=== PATIENT | male | born 1980 | race Caucasian/White ===

== ENCOUNTER 2022-12-27 14:31 | Outpatient (CLI) | payer BC, SELFPAY ==
--- NOTE | ~2022-12-27 | XR_ITS ---
XR abdomen/kub 1V 12/27/2022 14:46 INDICATION: Abdomen pain TECHNIQUE: KUB COMPARISON: None FINDINGS: Bowel gas pattern is normal. There is no evidence of free air, mass, organomegaly, ascites or obstruction. No abnormal calculi are seen. The bones appear intact. IMPRESSION: 1: No acute abdominal abnormality identified. Reviewed, dictated and finalized at location A.
== END 2022-12-27 14:32 ==
PROVIDERS: PCP Nurse Practitioner Family; Visit Provider Nurse Practitioner Family
DX: R10.9 Unspecified abdominal pain (principal)
CPT/HCPCS: 74018

== ENCOUNTER 2022-12-27 14:48 | Outpatient (CLI) | payer BC, SELFPAY ==
[2022-12-27 18:54] LABS: Basophils Absolute Auto 0.1 K/mm3 (0.0-0.1); Basophils Percent Auto 0.9 % (0.2-1.2); Eosinophils Absolute Auto 0.1 K/mm3 (0-0.3); Eosinophils Percent Auto 1.7 % (0-4.4); Hematocrit 46.6 % (42.0-52.0); Hemoglobin 15.8 g/dL (14.0-18.0); Immature Granulocyte Absolute 0.01 K/mm3 (0.00-0.031); Immature Granulocyte Percent A 0.1 % (0-0.5); Lymphocytes Absolute Auto 1.66 K/mm3 (0.9-3.2); Lymphocytes Percent Auto 20.4 % (18.3-44.2); Mean Corpuscular HGB Conc 33.9 g/dl (32-36); Mean Corpuscular Hemoglobin 30.7 pg (26-34); Mean Corpuscular Volume 90.5 fl (80-100); Mean Platelet Volume 8.6 fl (7.4-10.4); Monocytes Absolute Auto 0.9 K/mm3 (0.1-0.6); Monocytes Percent Auto 10.5 % (2.6-8.5); Neutrophils Absolute Auto 5.4 K/mm3 (1.3-6.7); Neutrophils Percent Auto 66.4 % (45.5-73.1); Platelet Count Result 345 k/mm3 (150-375); Red Blood Count 5.15 M/mm3 (4.6-6.20); Red Cell Distribution Width 11.9 % (11.5-14.5); White Blood Count 8.1 K/mm3 (4.5-10.0)
[2022-12-27 19:09] LABS: Alanine Aminotransferase 41 U/L (6-50); Albumin Level 4.5 g/dL (3.5-5.1); Alkaline Phosphatase 80 U/L (38-126); Amylase 72 U/L (30-110); Anion Gap 9 mmol/L (8-16); Aspartate Amino Transferase 43 U/L (17-59); Bilirubin,Total 0.5 mg/dL (0.2-1.3); Blood Urea Nitrogen 21 mg/dL (9-20); Calcium 8.8 mg/dL (8.4-10.2); Carbon Dioxide 26 mmol/L (22-30); Chloride 103 mmol/L (98-107); Estimated Glomerular Filt Rate > 60; Glucose 90 mg/dL (65-110); Lipase 78 U/L (23-300); Potassium 3.9 mmol/L (3.4-5.0); Sodium 138 mmol/L (137-145)
== END 2022-12-27 14:49 | disposition home or self-care (01) ==
PROVIDERS: PCP Nurse Practitioner Family; Visit Provider Nurse Practitioner Family
DX: Z00.00 Encounter for general adult medical examination without abnormal findings (principal); R10.9 Unspecified abdominal pain; I10 Essential (primary) hypertension
CPT/HCPCS: 36415; 80053; 82150; 83690; 85025; 87086; 87088

== ENCOUNTER 2023-02-11 05:44 | Inpatient (IN) | payer BC, SELFPAY ==
[2023-02-11] VITALS (17 sets, daily range): BP systolic 117–160; BP diastolic 68–109; PULSE 55–86; RESP 14–22; TEMP 36.1–36.9; O2SAT 97–100
--- NOTE | ~2023-02-11 | XR_ITS ---
XR chest 2V DATE: 02/11/2023 06:02 INDICATION: Mid chest pain after playing a lot of cough TECHNIQUE: PA and lateral views COMPARISON: None FINDINGS: Normal heart size. No hilar or mediastinal enlargement. No pulmonary infiltrate or consolid ation, pleural effusion or pulmonary vascular congestion or pneumothorax. Included skeletal structure s are unremarkable. IMPRESSION: No active cardiopulmonary disease Reviewed, dictated and finalized at location A.
--- NOTE | 2023-02-11 05:45 | ECG_ITS ---
Measurements Intervals [place] Rate: 54 P: -5 DC: 179 QRS: -30 QRSD: 109 T: 3 QT: 403 QTc: 383 Interpretive Statements SINUS BRADYCARDIA BORDERLINE T WAVE ABNORMALITY- INFERIOR LEADS BORDERLINE ECG NO PREVIOUS ECG AVAILABLE FOR COMPARISON Electronically Signed On 02-11-2023 7:10:21 CDT by Aubrey Cao D.O.
[2023-02-11 06:09] LABS: Basophils Absolute Auto 0.1 K/mm3 (0.0-0.1); Basophils Percent Auto 0.7 % (0.2-1.2); Eosinophils Absolute Auto 0.3 K/mm3 (0-0.3); Eosinophils Percent Auto 2.3 % (0-4.4); Hematocrit 48.1 % (42.0-52.0); Hemoglobin 16.6 g/dL (14.0-18.0); Immature Granulocyte Absolute 0.04 K/mm3 (0.00-0.031); Immature Granulocyte Percent A 0.4 % (0-0.5); Lymphocytes Absolute Auto 1.41 K/mm3 (0.9-3.2); Lymphocytes Percent Auto 13.1 % (18.3-44.2); Mean Corpuscular HGB Conc 34.5 g/dl (32-36); Mean Corpuscular Hemoglobin 30.3 pg (26-34); Mean Corpuscular Volume 87.9 fl (80-100); Mean Platelet Volume 8.4 fl (7.4-10.4); Monocytes Absolute Auto 1.6 K/mm3 (0.1-0.6); Monocytes Percent Auto 14.8 % (2.6-8.5); Neutrophils Absolute Auto 7.4 K/mm3 (1.3-6.7); Neutrophils Percent Auto 68.7 % (45.5-73.1); Platelet Count Result 269 k/mm3 (150-375); Red Blood Count 5.47 M/mm3 (4.6-6.20); Red Cell Distribution Width 11.5 % (11.5-14.5); White Blood Count 10.8 K/mm3 (4.5-10.0)
[2023-02-11] MEDS: ASPIRIN 81 MG CHEWABLE TABLET 324 MG PO (06:11)
[2023-02-11 06:21] LABS: Alanine Aminotransferase 38 U/L (6-50); Albumin Level 4.7 g/dL (3.5-5.1); Alkaline Phosphatase 114 U/L (38-126); Anion Gap 9 mmol/L (8-16); Aspartate Amino Transferase 38 U/L (17-59); Bilirubin,Total 0.7 mg/dL (0.2-1.3); Blood Urea Nitrogen 17 mg/dL (9-20); Carbon Dioxide 23 mmol/L (22-30); Chloride 105 mmol/L (98-107); Estimated CRCL calculation 141 ml/min; Estimated Glomerular Filt Rate > 60; Glucose 128 mg/dL (65-110); Lipase 91 U/L (23-300); Potassium 4.1 mmol/L (3.4-5.0); Sodium 137 mmol/L (137-145)
[2023-02-11 06:24] LABS: Prothrombin Time 13.4 Seconds (11.1-14.7)
[2023-02-11 06:25] LABS: Partial Thromboplastin Time 31.2 SECONDS (22.3-36.8)
--- NOTE | 2023-02-11 06:31 | ED.CHESTPAIN ---
HPI - Chest Pain General Chief Complaint: Chest Pain Stated Complaint: chest pain Time Seen by Provider: 02/11/23 06:19 History of Present Illness HPI narrative: Patient presents to the emergency department with persistent mid sternal chest pain that has been ongoing all night. He played golf yesterday. Pain woke him up and he has not been able to go back to sleep. 2 doses of Tylenol prior to arrival has not helped. He denies that pain is worse with deep breath and breathing however RN reports that his chest wall is very tender. Patient still has his gallbladder but right upper quadrant is not tender. He denies all other positive review of systems including fevers chills and shortness of breath. Denies significant family history of CAD patient is very pleasant in no distress but appears uncomfortable Related Data Allergies Allergy/AdvReac Type Severity Reaction Status Date / Time No Known Allergies Allergy Verified 02/11/23 05:44 Review of Systems Review of Systems: Review of systems negative except for what is documented in the HPI [facility] Past Medical History Medical History (Updated 02/11/23 @ 07:02 by Grace Finney MD) ADHD GERD without esophagitis Hair loss Hx of fracture of lower leg (~1995) tib-fib fracture, ORIF nicole in place Left sided abdominal pain of unknown cause Surgical History Surgical History Hx of foot surgery (~1992) right plantar foot -foreign body removed Liver donor (~2000) Family History Family History Mother Hepatitis C liver transplant recipient Father Alcoholism Social History Social History 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. Smoking status: Never smoker (use chewing tobacco daily ) Smokeless tobacco user: chewing tobacco Alcohol intake: current Drinks per week: 10 Substance use: never Lack of Transportation: No Lack of Food: Never True Current Housing: I Have Housing Concerned About Future Housing: No Difficulty Paying Gas/Electric Bills: No Difficulty Paying for Meds: No Currently Unemployed: No Difficulty w/ Childcare or Family Care: No Living arrangements: with family Exam Narrative: GENERAL: Well-appearing, well-nourished, and in no acute distress. HEAD: Normocephalic, atraumatic. EYES: PERRLA and EOMI. ENT: Nares clear, no rhinorrhea or epistaxis. Mucous membranes moist. NECK: Supple. CHEST: Clear to auscultation. No respiratory distress. HEART: Regular rate and rhythm. ABDOMEN: Soft, nontender, nondistended. EXTREMITIES: Normal range of motion. No edema. SKIN: Warm, dry, no rash. NEURO: No focal deficits. Alert and oriented x3. PSYCH: Normal mood and affect. Course Course Emergency Course: Differential diagnosis includes but not limited to chest wall musculoskeletal pain, acute cholecystitis, CAD, esophageal spasm Telemetry ordered due to patient having chest pain to monitor for dysrhythmias. Evaluated by me sinus bradycardia rate 58, no signs of ischemia Consulted Dr. Naylor. Plan to order heparin drip and get pain resolved. We will keep him n.p.o. Vital Signs Vital signs: Vital Signs Temperature 36.1 C L 02/11/23 05:51 Pulse Rate 55 L 02/11/23 05:51 Respiratory Rate 16 02/11/23 05:51 Blood Pressure 156/96 H 02/11/23 05:51 Pulse Oximetry 100 02/11/23 05:51 Oxygen Delivery Room Air 02/11/23 05:51 Temperature 36.1 C L 02/11/23 05:51 Pulse Rate 72 02/11/23 07:00 Respiratory Rate 17 02/11/23 07:00 Blood Pressure 134/101 H 02/11/23 07:00 Pulse Oximetry 98 02/11/23 07:00 Oxygen Delivery Room Air 02/11/23 06:04 MDM - Chest Pain MDM Narrative Medical decision making narrative: If patient troponin is negative his heart score will be low at 2 And to sign out
[2023-02-11 06:37] LABS: Troponin I 0.473 ng/mL (0.000-0.034)
--- NOTE | 2023-02-11 06:48 | ECG_ITS ---
Measurements Intervals [place] Rate: 54 P: -11 MO: 201 QRS: -28 QRSD: 117 T: -1 QT: 405 QTc: 387 Interpretive Statements SINUS BRADYCARDIA INCOMPLETE RIGHT BUNDLE BRANCH BLOCK BORDERLINE T WAVE ABNORMALITY- INFERIOR LEADS BORDERLINE ECG COMPARED TO ECG 02/11/2023 05:48:28 NO SIGNIFICANT CHANGES Electronically Signed On 02-11-2023 7:11:01 CDT by Aubrey Cao D.O.
[2023-02-11] MEDS: NITROGLYCERIN SL 0.4 MG TABLET SUBLINGUAL (06:52)
[2023-02-11] MEDS: ACETAMINOPHEN 325 MG TABLET 650 MG PO (06:52)
[2023-02-11] MEDS: HYDROmorphone HCL INJ (*CRX) 1 MG/ML SYR 0.5 MG IV PUSH (07:02)
[2023-02-11] MEDS: HEPARIN SODIUM 5,000 UNITS/ML VIAL 4000 UNITS IV PUSH ×3 (07:03→20:49)
--- NOTE | 2023-02-11 07:09 | PC.NURSE ---
This RN gave pt second nitro 5 minutes after first dose. Pt experienced relief.
[2023-02-11] MEDS: HEPARIN SOD/D5W 100 UNITS/ML 25,000 UNITS/250 ML BAG 10 UNITS IV CONT (07:14)
--- NOTE | 2023-02-11 08:21 | ADMGEN ---
This patient, Hardy Lopez, was admitted to IMU Room 200-01 at 0820. Patient/family oriented to hospital policies and general routines including ID bracelet, bed and alarms, visiting hours, pain management, procedures, bathroom and other care routines, personal items, smoking policy, room service/diet, and visiting hours. Information on how to activate the Rapid Response Team has been discussed. Patient/Family are encouraged to report perceived risks to care and to ask questions if they do not understand what they are told or what they should do.
[2023-02-11 09:24] LABS: Troponin I 0.699 ng/mL (0.000-0.034)
--- NOTE | 2023-02-11 10:38 | PM.IMHP ---
H&P: HPI History of Present Illness Date/Time: Date of service 02/11/23 10:38 Chief Complaint: Chest pain Narrative: This is 42-year-old patient with no significant past medical history apart from transient depression a year ago who apparently had a golf tournament yesterday and then went had some food with friends and then went to bed at 10:30 p.m. he woke up at 1:00 a.m. complaining of central chest heaviness with no aggravating or relieving factors and no radiation. He took Tylenol with no help. Then at 4:30 a.m. he took another Tylenol with no help. He decided to come to the emergency room. Denied shortness of breath, lower extremity edema, dizziness, syncope, orthopnea paroxysmal nocturnal dyspnea. Occasional vaping. He averages 6 beers a day. Does not know his father's side. His mom is adopted. His brother has no medical issues. 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 He was started on aspirin, heparin. Currently pain-free. No events on telemetry. EKG reviewed and as was self shows normal sinus rhythm with no ischemia. Chest x-ray looked unremarkable. Electrolytes and CBC unremarkable except for mild leukocytosis. Review of Systems Constitutional: Constitutional: Denies chills, Denies fever(s) and Denies poor appetite Eyes: Eyes: Denies eye discharge, Denies loss of vision and Denies eye pain ENT: Denies dizziness, Denies epistaxis, Denies nasal congestion and Denies sore throat Cardiovascular: Cardiovascular: Reports chest pain, Denies syncope, Denies pedal edema, Denies leg edema, Denies palpitations, Denies dyspnea, Denies dyspnea on exertion and Denies orthopnea Respiratory: Respiratory: Denies cough, Denies dyspnea, Denies dyspnea on exertion and Denies wheezing Gastrointestinal: Gastrointestinal: Denies abdominal pain, Denies diarrhea, Denies nausea and Denies vomiting Genitourinary: Genitourinary: Denies hematuria, Denies genital lesions and Denies dysuria Musculoskeletal: Musculoskeletal: Denies arthralgias, Denies joint swelling and Denies numbness Integumentary/Breasts: Skin/Breast: Denies pruritus and Denies rash Neurologic: Denies dizziness, Denies syncope, Denies loss of vision and Denies numbness Psychiatric: Psychiatric: Denies anxiety and Denies depression Endocrine: Endocrine: Denies cold intolerance, Denies heat intolerance and Denies palpitations Hematologic/Lymphatic: Hematologic/Lymphatic: Denies easy bleeding and Denies easy bruising Allergic/Immunologic: Allergic/Immunologic: Denies urticaria and Denies wheezing PMFSH Past Medical History Medical History ADHD GERD without esophagitis Hair loss Hx of fracture of lower leg (~1995) tib-fib fracture, ORIF nicole in place Left sided abdominal pain of unknown cause Surgical History Surgical History Hx of foot surgery (~1992) right plantar foot -foreign body removed Liver donor (~2000) Family History Family History Mother Hepatitis C liver transplant recipient Father Alcoholism Social History Social History 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 Smoking status: Never smoker Smokeless tobacco user: chewing tobacco Alcohol intake: current Drinks per week: 40 Substance use: current Substance use type: marijuana Last use: 02/09/23 Lack of Transportation: No Lack of Food: Never True Current Housing: I Have Housing Concerned About Future Housing: No Difficulty Paying Gas/Electric Bills: No Difficulty Paying for Meds: No Currently Unemployed: No Education: Associate Degree Difficulty w/ Childcare or Family Care: No Living arrangements: with family Spiritual care concerns: No Meds Home Medications and Allergies Home Medications Medicat
[2023-02-11 12:36] LABS: Troponin I 0.779 ng/mL (0.000-0.034)
[2023-02-11 14:16] LABS: Partial Thromboplastin Time 32.9 SECONDS (22.3-36.8)
[2023-02-11 20:19] LABS: Partial Thromboplastin Time 44.5 SECONDS (22.3-36.8)
[2023-02-12] VITALS (18 sets, daily range): BP systolic 101–130; BP diastolic 53–81; PULSE 54–78; RESP 10–20; TEMP 36.3–37.1; O2SAT 95–100
--- NOTE | 2023-02-12 | ECHO_ITS ---
Patient Info Name: Hardy Lopez Age: 42 years : 1980 Gender: Male Ht: 74 in Wt: 264 lbs BSA: 2.54 m2 HR: 78 bpm BP: 130 / 64 mmHg Heart Rhythm: Sinus Rhythm Technical Quality: Fair Exam Date: 02/12/2023 8:13 AM Exam Location: [facility] Card Pulmonary Patient Status: Inpatient Admit Date: 02/11/2023 Staff Ordering Physician: Brandy Wells MD Players Assistant: Ashely Casillas RDCS Attending Provider: Mayi Naylor DO Referring Physician: Russell ELIAS; Exam Type: CA echo doppler color flow Study Info Indications - NSTEMI R07.9 - Chest pain, unspecified Complete two-dimensional, color flow and Doppler transthoracic echocardiogram is performed. Summary 1. Complete two-dimensional, color flow and Doppler transthoracic echocardiogram is performed. 2. Unremarkable 2D Doppler echocardiogram. Left Ventricle Left ventricular chamber dimension is normal. Left ventricular systolic function is normal, estimated at 55-60%. The left ventricular diastolic function is normal. Right Ventricle Right ventricular chamber dimension is normal. Left Atria Left atrial chamber dimension is normal. Right Atria Right atrial chamber dimension is normal. Aortic Valve The aortic valve is normal. Pulmonic Valve The pulmonic valve is normal. Mitral Valve The mitral valve has normal leaflets. Tricuspid Valve The tricuspid valve leaflets are normal. Pericardium/Pleural The pericardium appears normal. Aorta The aortic root size at the sinus of Valsalva is normal. Left Ventricular Outflow Tract Name Value Normal LVOT 2D LVOT Diameter 2.3 cm LVOT Doppler LVOT Peak Gradient 4 mmHg LVOT Mean Gradient 2 mmHg LVOT VTI 19 cm LVOT VTI/AV VTI Ratio 0.8 LVOT Stroke Volume 78 ml LVOT CO 5.0 l/min LVOT CI 2.0 l/min/m2 Pulmonic Valve Name Value Normal RVOT Doppler RVOT Peak Gradient 3 mmHg PV Doppler PV Peak Gradient 4 mmHg Mitral Valve Name Value Normal MV Doppler MV Decel [place] 412 cm/s2 MV PHT 46 ms MV Area (PHT) 4.8 cm2 4.0-5.0 MV Diastolic Function MV E Peak Velocity 65 cm/s MV A Peak Velocity 45 cm/s MV E/A
[2023-02-12] MEDS: HEPARIN SOD/D5W 100 UNITS/ML 25,000 UNITS/250 ML BAG 18 UNITS IV CONT (01:19)
[2023-02-12 04:01] LABS: Partial Thromboplastin Time 63.8 SECONDS (22.3-36.8)
[2023-02-12] MEDS: HEPARIN SODIUM 5,000 UNITS/ML VIAL 4000 UNITS IV PUSH (04:15)
--- NOTE | 2023-02-12 08:39 | PC.NURSE ---
labor employment associate team at bedside at 0830 to prepare patient for Cardiac cath. Cardiac cath team transported patient to laborer cook house at 0838. labor employment associate team to resume patient care at this time.
--- NOTE | 2023-02-12 08:57 | WPDMODSED ---
Moderate Sedation Note-Pt Data Patient Data Diagnosis: chest pain with troponin elevation Present Complaint: no complaints this morning Procedure to be performed/Plan: left heart catheterization Allergies Allergy/AdvReac Type Severity Reaction Status Date / Time No Known Allergies Allergy Verified 02/11/23 08:23 Home Medications Medication Instructions Recorded Confirmed Type bupropion HCl 300 mg 24 hr tablet, 300 mg PO DAILY 02/11/23 02/11/23 History extended release Current Medications: Active Medications Heparin Sodium (Porcine) (Heparin Sodium 5,000 Units/Ml Vial) 4,000 units IV PUSH PRN PRN PRN Reason: aPTT 55 - 70 seconds Last Admin: 02/12/23 04:15 Dose: 4,000 units Heparin Sodium (Porcine) (Heparin Sodium 5,000 Units/Ml Vial) 4,000 units IV PUSH PRN PRN PRN Reason: aPTT less than 55 seconds Last Admin: 02/11/23 20:49 Dose: 4,000 units Heparin Sodium/Dextrose (Heparin Sodium/D5w 100 Units/Ml) 25,000 units in 250 mls @ 20 mls/hr IV CONT .[id number] [facility]; Protocol Last Titration: 02/12/23 04:18 Dose: 2,000 units/hr, 20 mls/hr Nitroglycerin (Nitroglycerin Sl 0.4 Mg Tablet) 0.4 mg SUBLINGUAL Q5MIN PRN PRN Reason: Chest Pain Perflutren Lipid Microsphere (Perflutren Lipid Microspheres 1.5 Ml Vial Diluted To 10 Ml Total Volume) 0 ml IV PUSH ONCE PRN; Protocol PRN Reason: adequate visualization Stop: 02/14/23 10:57 Sedation/Anesthesia: No previous sedation/anesthesia problems (including family history). 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 Smoking status: Never smoker Smokeless tobacco user: chewing tobacco Alcohol intake: current Drinks per week: 40 Substance use: current Substance use type: marijuana Last use: 02/09/23 Lack of Transportation: No Lack of Food: Never True Current Housing: I Have Housing Concerned About Future Housing: No Difficulty Paying Gas/Electric Bills: No Difficulty Paying for Meds: No Currently Unemployed: No Education: Associate Degree Difficulty w/ Childcare or Family Care: No Living arrangements: with family Spiritual care concerns: No Mod Sed Physical Exam Physical Exam Pre Procedural Exam: Normal: Appearance, Neck, Throat, Airway, Lungs, Heart Size, Heart Rate, Heart Rhythm, Neuro Exam and Extremities Hours since solid foods: 12 Hours since liquid intake: 12 Mallampati Classification: class II Internal Medicine - PN: Obj Da Vital Signs Vital Signs: Vital Signs - 24 hr 02/11/23 10:00 02/11/23 11:29 02/11/23 12:00 Temperature 36.9 C Pulse Rate 58 L 60 Respiratory Rate 19 Blood Pressure 126/77 Pulse Oximetry 99 Oxygen Delivery Room Air 02/11/23 12:00 02/11/23 14:00 02/11/23 16:00 Temperature Pulse Rate 86 60 72 Respiratory Rate Blood Pressure Pulse Oximetry Oxygen Delivery 02/11/23 16:00 02/11/23 16:00 02/11/23 17:56 Temperature 36.9 C Pulse Rate 74 84 Respiratory Rate 18 Blood Pressure 117/72 Pulse Oximetry 98 Oxygen Delivery Room Air 02/11/23 20:00 02/11/23 20:00 02/11/23 22:00 Temperature 36.7 C Pulse Rate 72 74 81 Respiratory Rate 18 Blood Pressure 123/68 Pulse Oximetry 97 Oxygen Delivery 02/11/23 23:40 02/12/23 0
--- NOTE | 2023-02-12 09:22 | WPDCARDPROC ---
Cardiac Cath Procedure Note Date of procedure:: 02/12/23 Performing physician:: Daljit Mcfarlane MD Indication:: chest pain troponin elevation Brief clinical history:: this is a 42-year-old patient who entered the hospital for evaluation of an episode of chest pain followed by a rise in his troponin level. He has no history of heart disease and no exertional symptomatology Procedure Procedure performed:: left ventriculogram coronary angiogram Angio-Seal to right femoral artery Sedation/Medication given:: fentanyl 50 mg Versed to mid case start time 9:01 a.m. case end time 9:17 a.m. sedation provided by Staci Harris RN, trained observer Access site:: right femoral artery Estimated blood loss:: 25 cc Procedure note:: patient was brought to the cardiac catheterization lab in the postabsorptive state where the right femoral triangle was prepared and draped in the normal fashion. Anesthesia was provided with 1% lidocaine infiltrated locally. Using the modified Seldinger technique the femoral artery was punctured and a 5 Guamanian vascular sheath was placed. After this I used a 5 [place]ian angled pigtail catheter to document left-sided hemodynamics and pullback pressures across the aortic valve. And left ventriculogram was performed in the 30 degree BAKER projection. Following this I engaged the left coronary artery in multiple projections and performed angiogram using a 5 [place] FL4 catheter. Right coronary artery was engaged and injected using a standard 5 [place] JR4 catheter. Following this the cineangiograms were reviewed. An angiogram was performed to the femoral artery through the sheath and then and 6 [place] Angio-Seal device was used to provide cutaneous hemostasis. 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 Findings:: Hemodynamics: Central aortic pressure is 115 76 left ventricle 115/0 end-diastolic pressure 14 there is no gradient upon pullback across the aortic valve. Left ventricle: The LV is normal in size all segments contract adequately the global ejection fraction visually estimates to be 50%. There were no regional wall motion abnormalities. The left main coronary artery is medium in caliber and widely patent the left anterior descending is a medium caliber vessel extending down to around the apex. The LAD is branches are smooth and angiographically normal in appearance the circumflex is a medium caliber vessel giving rise to the marginal branches. The circumflex marginal branches are angiographically smooth and normal in appearance the right coronary artery is dominant to the posterior circulation. The RPL branches are relatively small. The entire right coronary system however appears to be smooth and angiographically free of disease. Conclusion:: 1. Right coronary artery dominant circulation with no angiographic abnormalities 2. normal left ventricular systolic contractility Daljit Mcfarlane MD [facility]
--- NOTE | 2023-02-12 09:33 | SUR.PHASEII ---
Arrives in [facility] post cardiac cath. VS stable. No chest pain or SOB. Rt groin drsg d/i and site without hematoma, bruising or pain. Rt pedal pulse strong and regular. HOB raised approx 20 degrees.
--- NOTE | 2023-02-12 11:02 | PC.NURSE ---
Patient arrived back to IMU room 200 at 1050 from shrimp pond laborer. RN to resume patient care.
[2023-02-12] MEDS: SODIUM CHLORIDE 0.9% IV 1,000 ML 125 ML IV CONT (11:22)
[2023-02-12 11:28] LABS: Partial Thromboplastin Time 31.2 SECONDS (22.3-36.8)
--- NOTE | 2023-02-12 16:08 | PM.DS ---
DS: Admitting Diagnosis Discharge Date 02/12/2023 Admitting Diagnosis chest pain DS: Discharge Diagnosis Discharge Diagnosis (1) Acute non-ST elevation myocardial infarction (NSTEMI): Code(s): I21.4 - Non-ST elevation (NSTEMI) myocardial infarction Status: Acute Assessment and Plan: 42-year-old patient who entered the hospital for evaluation of an episode of chest pain followed by a rise in his troponin level.? He has no history of heart disease and no exertional symptomatology. No coronary artery disease seen on coronary angiogram. Continue ASA Continue risk factor modification for CAD Follow up with Dr. Cao as outpatient OK for discharge today. DS: Summary Hospital Course Hospital Course: Presented to the hospital with chest pain and had a modest troponin rise. He was taken to the cardiac rags laborer and was not found to have any coronary artery disease. Discharged home in stable condition with plan to follow up with Dr. Cao as outpatient. Time Spent with Patient Time attestation: Total time spent providing and/or coordinating discharge services: Exam Const: General: cooperative, comfortable, no acute distress, alert, awake and well nourished Nutritional Appearance: well nourished Orientation/consciousness: patient oriented x3 HENMT: Head: normal to inspection, normocephalic and atraumatic Ears: hearing grossly normal bilaterally Face/Nose/Sinus: Normal external nose present, Normal nares present, no nasal discharge noted, normal facial exam and No erythema Face and sinus: normal facial exam and no erythema Mouth: No drooling and No restricted motion Throat: uvula midline Eyes: General: appearance normal, both eyes and all related structures Alignment and Position: position normal Conjunctivae: conjunctivae normal Sclera: sclerae normal Direct Ophthalmoscopy: No photophobia Neck: Neck: normal visual inspection and no JVD Thyroid: thyroid normal Carotids: no bruits Lymphatic: lymphedema not noted Chest: Chest palpation & inspection: normal inspection of the chest and no tenderness Resp: Effort & Inspection: normal respiratory effort and no nasal flaring Auscultation: clear to auscultation bilaterally, no crackles, no rales and no wheezes Cardio: Jugular venous distension: no JVD Rate: regular rate Rhythm: regular rhythm Heart sounds: S1 normal heart sound present, S2 normal heart sound present, no gallops, no murmurs and no rubs GI: Inspection: non-distended Auscultation: normal bowel sounds Rectal Exam: deferred : General: No no CVA tenderness Back/Spine/Pelvis: Back: No no CVA tenderness Cervical Spine: cervical ROM normal Skin: General skin exam: normal color and rashes and/or lesions noted Neuro: General: patient oriented x3 Cranial nerves: No CN's II-XII intact bilaterally Speech: normal speech Motor exam (neuro): no tremors Extrem: General: normal to inspection and pedal edema present Psych: Appearance: grossly normal and well kempt Speech and movement: Normal speech and movement present Affect: normal affect DS: Data Data Completed and Pending Labs on day of discharge: Labs from last 24 hours 02/12/23 02/12/23 02/11/23 11:01 03:06 19:59 APTT 31.2 63.8 H 44.5 H Discharge Plan Discharge Consulting providers: Brandy Wells; Daljit Mcfarlane; Aubrey Cao; Bruce Gaona Discharging Clinician: Jaymie Alfonso Patient Disposition: Home, Self-Care Activity: other - see discharge instructions Diet: regular Wound Care Instructions: other - see discharge instructions Discharge Instructions: [facility] [address]
== END 2023-02-12 17:05 | disposition home or self-care (01) | DRG 282 ==
LOC: ANHED 07:02 → ANH2MED 08:20 → ANHIMU 08:20
PROVIDERS: Internal Medicine Cardiovascular Disease; Specialist; Admitting Provider Internal Medicine Cardiovascular Disease; Emergency Provider Emergency Medicine; PCP Nurse Practitioner Family; Visit Provider Nurse Practitioner
PROC: 4A023N7 Measurement of Cardiac Sampling and Pressure, Left Heart, Percutaneous Approach (ICD-10-PCS; CPT 93452; principal; 2023-02-12 09:00)
PROC: 4A023N7 Measurement of Cardiac Sampling and Pressure, Left Heart, Percutaneous Approach (ICD-10-PCS; 2023-02-12 09:00)
DX: I21.4 Non-ST elevation (NSTEMI) myocardial infarction (principal); K21.9 Gastro-esophageal reflux disease without esophagitis; F17.290 Nicotine dependence, other tobacco product, uncomplicated
CPT/HCPCS: 36415; 71046; 80053; 83690; 84484; 85025; 85610; 85730; 93005; 93306; 93458; 96374; 96375; 99285; A9270; C1760; C1887; C1894; G0269; J1170; J1644; J2250; J3010; J7030; J7040

== ENCOUNTER 2023-02-16 11:12 | Outpatient (CLI) | payer BC, SELFPAY ==
[2023-02-16 19:09] LABS: Basophils Absolute Auto 0.1 K/mm3 (0.0-0.1); Eosinophils Absolute Auto 0.2 K/mm3 (0-0.3); Eosinophils Percent Auto 2.8 % (0-4.4); Hemoglobin 16.7 g/dL (14.0-18.0); Immature Granulocyte Absolute 0.03 K/mm3 (0.00-0.031); Immature Granulocyte Percent A 0.4 % (0-0.5); Lymphocytes Absolute Auto 1.85 K/mm3 (0.9-3.2); Lymphocytes Percent Auto 25.9 % (18.3-44.2); Mean Corpuscular HGB Conc 33.4 g/dl (32-36); Mean Corpuscular Hemoglobin 30.5 pg (26-34); Mean Corpuscular Volume 91.4 fl (80-100); Mean Platelet Volume 8.8 fl (7.4-10.4); Monocytes Absolute Auto 0.7 K/mm3 (0.1-0.6); Monocytes Percent Auto 9.2 % (2.6-8.5); Neutrophils Absolute Auto 4.3 K/mm3 (1.3-6.7); Neutrophils Percent Auto 60.7 % (45.5-73.1); Platelet Count Result 355 k/mm3 (150-375); Red Blood Count 5.47 M/mm3 (4.6-6.20); Red Cell Distribution Width 11.7 % (11.5-14.5); White Blood Count 7.2 K/mm3 (4.5-10.0)
[2023-02-16 19:34] LABS: Alanine Aminotransferase 63 U/L (6-50); Albumin Level 4.7 g/dL (3.5-5.1); Alkaline Phosphatase 81 U/L (38-126); Anion Gap 7 mmol/L (8-16); Aspartate Amino Transferase 46 U/L (17-59); Bilirubin,Total 0.7 mg/dL (0.2-1.3); Blood Urea Nitrogen 21 mg/dL (9-20); Calcium 9.1 mg/dL (8.4-10.2); Carbon Dioxide 30 mmol/L (22-30); Chloride 101 mmol/L (98-107); Cholesterol 164 mg/dL (0-200); Estimated Glomerular Filt Rate > 60; Glucose 97 mg/dL (65-110); HDL Direct 36 mg/dL; Potassium 4.3 mmol/L (3.4-5.0); Sodium 138 mmol/L (137-145); Triglycerides 121 mg/dL (<150)
[2023-02-16 19:45] LABS: LDL Cholesterol Direct 90 mg/dL
[2023-02-16 19:58] LABS: Vitamin D 25 Hydroxy 61.9 ng/mL
[2023-02-16 20:05] LABS: Hemoglobin A1C 5.2 % (<5.7)
== END 2023-02-16 11:13 | disposition home or self-care (01) ==
LOC: ANHGOSHLAB 11:13
PROVIDERS: PCP Nurse Practitioner Family; Visit Provider Nurse Practitioner Family
DX: Z00.00 Encounter for general adult medical examination without abnormal findings (principal); Z13.21 Encounter for screening for nutritional disorder; I10 Essential (primary) hypertension; Z13.220 Encounter for screening for lipoid disorders; Z13.29 Encounter for screening for other suspected endocrine disorder; Z13.1 Encounter for screening for diabetes mellitus
CPT/HCPCS: 36415; 80053; 80061; 82306; 83036; 84443; 85025

== ENCOUNTER 2023-06-01 03:59 | Day surgery (SDC) | payer BC, SELFPAY ==
[2023-05-23 12:45] VITALS: BMI 34.9
--- NOTE | 2023-05-23 12:51 | PC.NURSE ---
Report to the Outpatient Waiting Room, entrance under the green pavilion located off [facility], at time 1130 on date 06/01/23. Planned Procedure Time: 1330. Time changes happen often and if your time is changed the preop area will call you the afternoon before. - You and your visitor will be asked to self-screen and do not enter if you have any COVID symptoms. - A mask is optional within the hospital at this time. Patients may have clear liquids (water, carbonated beverages, clear teas, apple juice) until 3 hours prior to surgery with a maximum of 20 ounces. - No food from midnight until time of surgery Take the following medications with a SIP of water the morning of surgery: CITALOPRAM, CLONAZEPAM IF NEEDED DO NOT STOP ANY OF YOUR OTHER PRESCRIPTION MEDICATIONS PRIOR TO SURGERY ?EXCEPT THE FOLLOWING Medications to discontinue per physician: ASPIRIN Date to take last dose: FOLLOW INSTRUCTIONS FROM DR. MARKS Please no make-up, nail syriac, hairspray, perfume, deodorant, or body powder the day of surgery. No jewelry (including any body piercings) or valuables the day of surgery, leave them at home. Please take a shower or bath the night before, or the morning of, surgery with an antibacterial soap. Wear comfortable, loose fitting clothing. - Jewelry must be removed prior to entering the operating room. Rings and piercings that are not removed may be cut off. - The hospital will not accept responsibility for valuables. - Please leave all valuables, including medications, at home the day of surgery. If you are going home after surgery, a licensed dedicated truck driver must drive you home. - NO public transportation without another adult if you receive anesthesia. - We recommend that an adult stay with you for 24 hours following discharge. - We also recommend that you do not drive, make important decision, drink alcoholic beverages, or take any drugs that were not prescribed by your health care provider for at least 24 hours after your discharge time. Follow any additional instructions given to you from your surgeon. If you or anyone in your household have experienced Covid symptoms in the past week, please notify your surgeon or the nurse liaison at the phone number below for possible testing. Telephone instructions given to PT - ABHAY UMANZOR and asked if any additional questions and then verbalized understanding. Patient advised to call surgeon office or pre surgery nurse liaison [phone] if any additional questions.
--- NOTE | 2023-05-31 17:46 | PM.IMHP ---
H&P: HPI History of Present Illness Date/Time: 05/31/23 17:46 Chief Complaint: nasal obstruction nasal congestion septal deviation turbinate hypertrophy Narrative: planned procedure Review of Systems Review of Systems: All systems reviewed & are unremarkable except as noted in HPI and below [facility] Past Medical History Medical History ADHD GERD without esophagitis Hair loss Hx of fracture of lower leg (~1995) tib-fib fracture, ORIF nicole in place Hypertrophy of nasal turbinates Insomnia Left sided abdominal pain of unknown cause Panic attacks Surgical History Surgical History Hx of foot surgery (~1992) right plantar foot -foreign body removed Liver donor (~2000) Family History Family History Mother Hepatitis C liver transplant recipient Father Alcoholism Social History Social History 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- coffee Smoking status: Never smoker Smokeless tobacco user: chewing tobacco Alcohol intake: current Drinks per week: 14 Alcohol use details: NO HARD ALCOHOL SINCE HEART ATTACK, NOW WINE/BEER Substance use: current Substance use type: marijuana Last use: 02/09/23 Lack of Transportation: No Lack of Food: Never True Current Housing: I Have Housing Concerned About Future Housing: No Difficulty Paying Gas/Electric Bills: No Difficulty Paying for Meds: No Currently Unemployed: No Education: High School Diploma/GED Difficulty w/ Childcare or Family Care: No Living arrangements: with family Spiritual care concerns: No Meds Home Medications and Allergies Home Medications Medication Instructions Recorded Confirmed Type aspirin 81 mg tablet,delayed 81 mg PO DAILY 02/20/23 05/23/23 History release (Adult Low Dose Aspirin) citalopram 20 mg tablet 20 mg PO DAILY 02/20/23 05/23/23 History nitroglycerin 0.4 mg sublingual 0.4 mg sublingual Q5M PRN chest 02/20/23 05/23/23 Rx tablet pain #30 tabs mupirocin 2 % topical ointment 1 applic topical BID #22 grams 03/28/23 05/23/23 Rx trazodone 50 mg tablet 50 mg PO QHS PRN insomnia #30 tabs 04/16/23 05/23/23 Rx clonazepam 0.5 mg tablet 0.25 mg PO QHS #30 tabs 05/14/23 05/23/23 Rx Allergies Allergy/AdvReac Type Severity Reaction Status Date / Time No Known Allergies Allergy Verified 05/23/23 12:43 Exam Narrative: septal deviation turbinate hypertrophy Assessment and Plan Assessment and plan (1) Nasal obstruction: Code(s): J34.89 - Other specified disorders of nose and nasal sinuses Status: Acute Assessment and Plan: plan or endoscopic assisted septoplasty turbinate reduction bilaterally with outfracture inferior. Risks were discussed including bleeding infection damage steroids structures septal perforation failure to resolve symptoms change in cosmesis induction of nasal valve collapse need further procedures including valve work. Failure to resolve symptoms. CSF leak brain brain damage change in vision total blindness. Need for time off work time off school. Inherent risk of narcotic use. Damage to any structure of the clavicle by myself. Damage to any structure during the induction and maintenance of anesthesia including vocal cord paralysis. Tooth numbness. (2) Hypertrophy of both inferior nasal turbinates: Code(s): J34.3 - Hypertrophy of nasal turbinates Status: Acute (3) Nasal septal deviation: Code(s): J34.2 - Deviated nasal septum Status: Acute (4) Hypertrophy of nasal turbinates: Code(s): J34.3 - Hypertrophy of nasal turbinates Status: Acute
--- NOTE | 2023-06-01 11:04 | WPDHPUPDATE1 ---
History and Physical Update Update Date/Time: 06/01/23 11:04 History and Physical has been reviewed, including an updated exam of the patient. There are NO changes in the patient's condition. Risks, benefits, and alternatives have been discussed and questions answered. Patient agrees to proceed with procedure.
--- NOTE | 2023-06-01 12:44 | WPDANESEPPF ---
Anes - Initial Pre Proc Eval Procedure: Operation Date: 06/01/23 13:30 Proposed Procedures p Septoplasty, - iTmi Doty MD s Bilateral Inferior Turbinate Reduction with Outfracture - Timi Doty MD Date/Time: 06/01/23 12:44 Surgeon: Timi Doty MD Pre Op Diagnosis: septal deviation, turbinate hypertrophy Patient Data Age: 42 Gender: M Height: 1.91 m Weight: 127 kg Allergies Allergy/AdvReac Type Severity Reaction Status Date / Time No Known Allergies Allergy Verified 05/23/23 12:43 Home Medications Medication Instructions Recorded Confirmed Type aspirin 81 mg tablet,delayed 81 mg PO DAILY 02/20/23 05/23/23 History release (Adult Low Dose Aspirin) citalopram 20 mg tablet 20 mg PO DAILY 02/20/23 05/23/23 History nitroglycerin 0.4 mg sublingual 0.4 mg sublingual Q5M PRN chest 02/20/23 05/23/23 Rx tablet pain #30 tabs mupirocin 2 % topical ointment 1 applic topical BID #22 grams 03/28/23 05/23/23 Rx trazodone 50 mg tablet 50 mg PO QHS PRN insomnia #30 tabs 04/16/23 05/23/23 Rx clonazepam 0.5 mg tablet 0.25 mg PO QHS #30 tabs 05/14/23 05/23/23 Rx Patient hx anesthesia problems: none Family hx anesthesia problems: none Results Review: All pre-operative results and documents have been reviewed as part of the pre-operative evaluation. 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- coffee Smoking status: Never smoker Smokeless tobacco user: chewing tobacco Alcohol intake: current Drinks per week: 14 Alcohol use details: NO HARD ALCOHOL SINCE HEART ATTACK, NOW WINE/BEER Substance use: current Substance use type: marijuana Last use: 02/09/23 Lack of Transportation: No Lack of Food: Never True Current Housing: I Have Housing Concerned About Future Housing: No Difficulty Paying Gas/Electric Bills: No Difficulty Paying for Meds: No Currently Unemployed: No Education: High School Diploma/GED Difficulty w/ Childcare or Family Care: No Living arrangements: with family Spiritual care concerns: No Anes - Eval Final PreProcedure Day of Procedure 06/01/23 12:44 Patient weight: obese Heart: regular rate and rhythm Lungs: decreased breath sounds Airway: Mallampati scale class II Neurological: alert and oriented Last oral intake: >/= 8 hours ASA classification: III Emergent: no Anesthetic plan: proceed Anesthesia type and monitoring: general ETT and standard monitoring Results Review: All pre-operative results and documents have been reviewed as part of the pre-operative evaluation. Informed Consent: The patient's anesthetic plan and its attendant risks and benefits were discussed with the patient/family/POA. Questions were solicited and answers provided to the satisfaction of the patient/family/POA.
[2023-06-01] MEDS: ACETAMINOPHEN 500 MG TABLET 1000 MG PO (12:45)
[2023-06-01] MEDS: LACTATED RINGERS 1,000 ML 30 ML IV CONT ×2 (12:45→16:31)
[2023-06-01 12:48] VITALS: BP 110/68; PULSE 54; RESP 14; TEMP 36.9; O2SAT 99
[2023-06-01] MEDS: ceFAZolin 3 GM/D5W 100 ML 100 ML IVPB (13:07)
[2023-06-01] MEDS: LIDO 1%/EPINEPHRINE 1:100,000 50 ML VIAL INFILTRATE (13:40)
[2023-06-01] MEDS: OXYMETAZOLINE HCL 0.05% NAS 15 ML BTL (*BKC) 1 SPRAY NASAL (13:40)
[2023-06-01] MEDS: MUPIROCIN 2% OINT 22 GM TUBE 1 APPLIC EACH NARE (14:58)
[2023-06-01 15:51] VITALS: BP 151/89; PULSE 86; RESP 12; TEMP 36.5; O2SAT 99
[2023-06-01] MEDS: fentaNYL CITRATE INJ (*CRX) 100 MCG/2 ML VIAL 25 MCG IV PUSH ×8 (16:00→16:30)
[2023-06-01 16:06] VITALS: BP 142/93; PULSE 72; RESP 14; O2SAT 98
--- NOTE | 2023-06-01 16:18 | W.PM.PROC2 ---
Procedure Note - Detailed Date of Procedure 06/01/23 Pre-op Diagnosis septal deviation, turbinate hypertrophy Post-op Diagnosis Same Procedure Performed Assisted septoplasty turbinate reduction with outfracture bilaterally infer Surgeon Timi Doty MD Anesthesia General Indications severely deviated right caudal leftward septal leftward on globally. Hypertrophied turbinates. Findings See above, left linear tear was reapproximated no concomitant tear. Right-sided caudal deviation very solid bone is reduced by about 80%. Turbinates well reduced moderate bleeding. No obvious complications. Description of Procedure Patient identified consent verified preop. Patient was brought to the operating room. Time-out performed. General anesthesia induced endotracheal tube secured airway. Patient prepped draped position procedure confirmed 2nd time-out. Total 15 cc 1% lidocaine 1 100 parts epinephrine injected bilateral nasal septum inferior turbinates. Inferior turbinates reduced submucosal plane of microdebrider outfracture [place] elevator. [place] incision was very anterior left-sided. Left nasal septal flap elevated linear tear down the middle for about 1-2 cm. Osteotome utilized to cross over right nasal septal flap elevated. Deviated septum removed Devin Hannaton forceps Martin forceps and osteotome. [place] incision closed with 5 interrupted 5 0 fast gut sutures. One suture was also placed the linear tear reapproximating reapproximating the tear to torn mucosa. Because the right caudal portion was still exist in the did deviated portion which has not able to get from left [place] incision a small linear incision was made over the right caudal deviation which in no way touch the left-sided incision. The bone was then removed with osteotome. The incision was approximated with 150 fast gut suture. Bilateral nasal plasty passages irrigated suctioned clean Kaur splints were placed right had to be trimmed so that it fit over the caudal deviation on the floor of the nose. But looked really good afterwards. This was sutured anteriorly using a 3-0 mattress nylon suture. Patient tolerated the procedure well no obvious complications care the patient given back to Anesthesiology. Patient taken to PACU. Estimated Blood Loss 25 Drains No Packing No Pathology None sent Complications No immediate complications Condition Stable Disposition PACU [facility] Billing Surgery - Charge Forward: Surgery Billing
[2023-06-01 16:21] VITALS: BP 139/75; PULSE 70; RESP 12; O2SAT 94
[2023-06-01 16:30] VITALS: BP 136/84; PULSE 74; RESP 20
[2023-06-01 17:00] VITALS: BP 141/78; PULSE 65; RESP 20
== END 2023-06-01 17:10 | disposition home or self-care (01) ==
PROVIDERS: PCP Nurse Practitioner Family; Visit Provider Otolaryngology
PROC: (CPT 30520; principal; 2023-06-01 13:30)
PROC: (CPT 30520; 2023-06-01 13:30)
DX: J34.2 Deviated nasal septum (principal); J34.3 Hypertrophy of nasal turbinates; F90.9 Attention-deficit hyperactivity disorder, unspecified type; K21.9 Gastro-esophageal reflux disease without esophagitis; G47.00 Insomnia, unspecified; F41.0 Panic disorder [episodic paroxysmal anxiety]; F17.220 Nicotine dependence, chewing tobacco, uncomplicated; F12.90 Cannabis use, unspecified, uncomplicated; E66.9 Obesity, unspecified; Z68.35 Body mass index [BMI] 35.0-35.9, adult; Z79.82 Long term (current) use of aspirin
CPT/HCPCS: 30520; 30140; A9270; J0330; J0690; J2250; J2405; J2704; J3010; J7120

== ENCOUNTER 2023-10-05 15:54 | Outpatient (CLI) | payer BC, SELFPAY ==
[2023-10-05 20:24] LABS: Alanine Aminotransferase 36 U/L (6-50); Albumin Level 4.7 g/dL (3.5-5.1); Alkaline Phosphatase 84 U/L (38-126); Anion Gap 7 mmol/L (4-12); Aspartate Amino Transferase 44 U/L (17-59); Blood Urea Nitrogen 15 mg/dL (9-20); Calcium 9.1 mg/dL (8.4-10.2); Carbon Dioxide 25 mmol/L (22-30); Chloride 104 mmol/L (98-107); Cholesterol 200 mg/dL (0-200); Estimated Glomerular Filt Rate > 60; Glucose 99 mg/dL (65-110); HDL Direct 53 mg/dL; Sodium 136 mmol/L (137-145); Triglycerides 103 mg/dL (<150)
[2023-10-05 20:35] LABS: LDL Cholesterol Direct 122 mg/dL
== END 2023-10-05 15:55 | disposition home or self-care (01) ==
LOC: ANHGOSHLAB 15:55
PROVIDERS: PCP Nurse Practitioner Family; Visit Provider Internal Medicine Cardiovascular Disease
DX: I21.4 Non-ST elevation (NSTEMI) myocardial infarction (principal)
CPT/HCPCS: 36415; 80053; 80061

== ENCOUNTER 2023-10-12 02:17 | Day surgery (SDC) | payer BC, SELFPAY ==
[2023-10-09 14:44] VITALS: BMI 34.9
--- NOTE | 2023-10-09 14:49 | PC.NURSE ---
Report to the Outpatient Waiting Room, entrance under the green pavilion located off [facility], at time _1115_ on date _[id number]_. Planned Procedure Time: _115pm_. Time changes happen often and if your time is changed the preop area will call you the afternoon before. - You and your visitor will be asked to self-screen and do not enter if you have any COVID symptoms. - A mask is optional within the hospital at this time. Patients may have clear liquids (water, carbonated beverages, clear teas, apple juice) until 3 hours prior to surgery with a maximum of 20 ounces. - No food from midnight until time of surgery Take the following medications with a SIP of water the morning of surgery: ____Citalopram DO NOT STOP ANY OF YOUR OTHER PRESCRIPTION MEDICATIONS PRIOR TO SURGERY ?EXCEPT THE FOLLOWING Medications to discontinue per physician None Date to take last dose Please no make-up, nail swedish, hairspray, perfume, deodorant, or body powder the day of surgery. No jewelry (including any body piercings) or valuables the day of surgery, leave them at home. Please take a shower or bath the night before, or the morning of, surgery with an antibacterial soap. Wear comfortable, loose fitting clothing. - Jewelry must be removed prior to entering the operating room. Rings and piercings that are not removed may be cut off. - The hospital will not accept responsibility for valuables. - Please leave all valuables, including medications, at home the day of surgery. If you are going home after surgery, a licensed pack train driver must drive you home. - NO public transportation without another adult if you receive anesthesia. - We recommend that an adult stay with you for 24 hours following discharge. - We also recommend that you do not drive, make important decision, drink alcoholic beverages, or take any drugs that were not prescribed by your health care provider for at least 24 hours after your discharge time. Follow any additional instructions given to you from your surgeon. If you or anyone in your household have experienced Covid symptoms in the past week, please notify your surgeon or the nurse liaison at the phone number below for possible testing. Telephone instructions given to __Chris__and asked if any additional questions and then verbalized understanding. Patient advised to call surgeon office or pre surgery nurse liaison [phone] if any additional questions.
[2023-10-12 10:30] VITALS: BP 109/68; PULSE 55; RESP 18; TEMP 36.7; O2SAT 96
[2023-10-12] MEDS: LACTATED RINGERS 1,000 ML 30 ML IV CONT (11:15)
--- NOTE | 2023-10-12 11:27 | WPDANESEPPF ---
Anes - Initial Pre Proc Eval Procedure: Operation Date: 10/12/23 12:00 Proposed Procedures p Excision of Left Occipital Scalp Cyst - Alex Hendrix MD Date/Time: 10/12/23 11:27 Surgeon: Alex Hendrix MD Pre Op Diagnosis: scalp cyst Patient Data Age: 42 Gender: M Height: 1.89 m Weight: 125 kg Allergies Allergy/AdvReac Type Severity Reaction Status Date / Time No Known Allergies Allergy Verified 10/12/23 10:33 Home Medications Medication Instructions Recorded Confirmed Type nitroglycerin 0.4 mg sublingual 0.4 mg sublingual Q5M PRN chest 02/20/23 10/12/23 Rx tablet pain #30 tabs citalopram 40 mg tablet (Celexa) 40 mg PO DAILY #90 tabs 06/14/23 10/12/23 Rx mupirocin 2 % topical ointment See Rx Instructions topical 06/20/23 10/12/23 Rx .COMPLEX #44 grams trazodone 50 mg tablet 50 mg PO QHS PRN insomnia #30 tabs 08/27/23 10/12/23 Rx clonazepam 0.5 mg tablet 0.25 mg PO QHS PRN Anxiety 10/09/23 10/12/23 History Patient hx anesthesia problems: none Family hx anesthesia problems: none Results Review: All pre-operative results and documents have been reviewed as part of the pre-operative evaluation. [facility] Past Medical History Medical History ADHD Bursitis of right elbow GERD without esophagitis Hair loss Hx of fracture of lower leg (~1995) tib-fib fracture, ORIF nicole in place Hypertrophy of nasal turbinates Insomnia Left sided abdominal pain of unknown cause Panic attacks Poison mary dermatitis Surgical History Surgical History H/O nasal septoplasty Hx of foot surgery (~1992) right plantar foot -foreign body removed Liver donor (~2000) Family History Family History Mother Hepatitis C liver transplant recipient Father Alcoholism Social History Social History 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 Smoking status: Never smoker Smokeless tobacco user: other Additional smoking assessment comments: dips occasionally Alcohol intake: current Drinks per week: 14 Alcohol use details: NO HARD ALCOHOL SINCE HEART ATTACK, NOW WINE/BEER Substance use: current Substance use type: marijuana Last use: 02/09/23 Do You Feel Safe in your Home?: Yes Lack of Transportation: No Lack of Food: Never True Current Housing: I Have Housing Concerned About Future Housing: No Difficulty Paying Gas/Electric Bills: No Difficulty Paying for Meds: No Currently Unemployed: No Education: High School Diploma/GED Difficulty w/ Childcare or Family Care: No Living arrangements: with family Spiritual care concerns: No Anes - Eval Final PreProcedure Day of Procedure 10/12/23 11:27 Patient weight: obese Heart: regular rate and rhythm Lungs: decreased breath sounds Airway: Mallampati scale Neurological: alert and oriented Last oral intake: >/= 8 hours ASA classification: III Emergent: no Anesthetic plan: proceed Anesthesia type and monitoring: general LMA and standard monitoring Results Review: All pre-operative results and documents have been reviewed as part of the pre-operative evaluation. Informed Consent: The patient's anesthetic plan and its attendant risks and benefits were discussed with the patient/family/POA. Questions were solicited and answers provided to the satisfaction of the patient/family/POA.
--- NOTE | 2023-10-12 11:47 | WPDHPUPDATE1 ---
History and Physical Update Update Date/Time: 10/12/23 11:47 History and Physical has been reviewed, including an updated exam of the patient. There are NO changes in the patient's condition. Risks, benefits, and alternatives have been discussed and questions answered. Patient agrees to proceed with procedure. Proceed with excision of RIGHT occipital scalp cyst in OR today.
[2023-10-12] MEDS: ceFAZolin 3 GM/D5W 100 ML 100 ML IVPB (11:54)
[2023-10-12] MEDS: BUPivacaine HCL 0.5% PF 30 ML VIAL 15 ML INFILTRATE (12:19)
[2023-10-12] MEDS: LIDO 1%/EPINEPHRINE 1:100,000 50 ML VIAL 15 ML INFILTRATE (12:19)
[2023-10-12 12:41] VITALS: BP 96/54; PULSE 69; RESP 14; O2SAT 95
--- NOTE | 2023-10-12 12:49 | W.PM.PROC2 ---
Procedure Note - Detailed Date of Procedure 10/12/23 Pre-op Diagnosis Right occipital scalp cyst Post-op Diagnosis Same Procedure Performed Excision of right occipital scalp cyst Surgeon Alex Hendrix MD Toolroom Machinist Yaima Florez [facility] Anesthesia MAC Indications Patient is a 42-year-old gentleman sent longstanding slowly enlarging right occipital scalp cyst. He presents now for excision Findings 2x1.5x1.5cm right occipital scalp cyst. Description of Procedure After informed consent was obtained patient brought to the operating room was placed in the left lateral decubitus position on room table. IV sedation was administered by anesthesia. The area the right occipital scalp region was then prepped and draped usual sterile fashion. A time-out was then performed correctly identifying the patient as well as procedure performed and verifying site marking. He was given perioperative IV antibiotics. 1% lidocaine mixed with 0.5% Marcaine was injected around scalp cyst for local anesthetic effect. I then made a transverse elliptical incision over the cyst with a scalpel and then dissected down through the dermis skin with sharp tenotomy scissors around the wall the cyst and shelled out the wall from the surrounding tissues. Electrocautery was then used to completely excise the cyst wall from the deeper subcutaneous tissues. The cyst extended down but did not extend below on the [place]. The cyst measured 2x1.5x1.5cm. It was sent to pathology for examination. Hemostasis was achieved incision electrocautery. Additional local anesthetic mixture was injected at the base of the wound and the scalp. I then closed the incision simple fashion utilizing a running and locking 3-0 Prolene suture. The incision was then cleaned and then antibiotic was applied. The patient tolerated the procedure well no complications. All sponges, needles, and instrument counts were correct at the end procedure. EBL was _5__cc. The patient was awakened and taken to recovery in stable and satisfactory condition. Implants None Estimated Blood Loss 5 Drains No Packing No Pathology Yes (Scalp cyst to pathology) Complications No immediate complications Condition Stable Disposition PACU [facility] Billing Surgery - Charge Forward: Surgery Billing
[2023-10-12 13:10] VITALS: BP 118/79; PULSE 65; RESP 14; O2SAT 94
[2023-10-12 13:40] VITALS: BP 107/76; PULSE 56; RESP 14
== END 2023-10-12 13:51 | disposition home or self-care (01) ==
PROVIDERS: PCP Nurse Practitioner Family; Visit Provider Surgery
PROC: (CPT 11422; principal; 2023-10-12 12:00)
DX: L72.12 Trichodermal cyst (principal); F90.9 Attention-deficit hyperactivity disorder, unspecified type; I25.2 Old myocardial infarction; F12.90 Cannabis use, unspecified, uncomplicated; Z72.0 Tobacco use; E66.9 Obesity, unspecified; Z68.34 Body mass index [BMI] 34.0-34.9, adult
CPT/HCPCS: 11422; 88304; 88305; A9270; J0690; J2250; J3010; J7120

== ENCOUNTER 2024-04-04 12:30 | Outpatient (CLI) | payer BC, SELFPAY ==
[2024-04-04 15:00] LABS: Alanine Aminotransferase 54 U/L (6-50); Albumin Level 4.7 g/dL (3.5-5.1); Alkaline Phosphatase 79 U/L (38-126); Anion Gap 8 mmol/L (4-12); Aspartate Amino Transferase 53 U/L (17-59); Bilirubin,Total 0.7 mg/dL (0.2-1.3); Blood Urea Nitrogen 14 mg/dL (9-20); Carbon Dioxide 30 mmol/L (22-30); Chloride 102 mmol/L (98-107); Cholesterol 210 mg/dL (0-200); Estimated Glomerular Filt Rate > 60; Glucose 100 mg/dL (65-110); HDL Direct 48 mg/dL; Magnesium 2.1 mg/dL (1.6-2.3); Sodium 140 mmol/L (137-145); Triglycerides 131 mg/dL (<150)
[2024-04-04 15:03] LABS: Thyroid Stimulating Hormone Reflex 0.292 uIU/mL (0.465-4.68)
[2024-04-04 15:12] LABS: LDL Cholesterol Direct 119 mg/dL
[2024-04-04 15:15] LABS: Hemoglobin A1C 5.5 % (<5.7)
[2024-04-04 20:57] LABS: Free T4 Free Thyroxine Reflex 0.95 ng/dL (0.78-2.19)
[2024-04-04 22:28] LABS: Total Triiodothyronine (T3) 1.54 NG/ML (0.97-1.69)
== END 2024-04-04 12:31 | disposition home or self-care (01) ==
LOC: ANHGOSHLAB 12:36
PROVIDERS: PCP Nurse Practitioner Family; Visit Provider Internal Medicine Cardiovascular Disease
DX: I21.4 Non-ST elevation (NSTEMI) myocardial infarction (principal)
CPT/HCPCS: 36415; 80053; 80061; 83036; 83735; 84439; 84443; 84480